=== PATIENT | male | born 1950 | race Caucasian/White ===

== ENCOUNTER → 2017-12-26 | Outpatient (CLI) | payer MEDICARE, OTHER ==
[2016-03-12 20:30] VITALS: BP 128/78
[~2017-12-26] MED LIST: ALFU10TA23 PO; ALLO300T PO; ASPI-482 PO; ATOR40TA PO; BUPIVACAINE MPF 0.25% 10 ML VIAL. ONE; CALC-263 PO; CHOL100014 PO; CINN500C2 PO; DOXA1TAB PO; FOLI1TAB16 PO; HYDR-971 PO; MAGN400T3 PO; METO25TA2 PO; MULT-18 PO; NAPR-683 PO; NIAC1000 PO; NIFE60TA PO; OMEG500C PO; SALS500T11 PO; SILD50TA PO; TELM1TAB PO; [UNRECOGNIZED DRUG - CODE] MC; methylPREDNISolone ACETATE 40 MG/ML VIAL. ONE
== END | disposition home or self-care (01) ==
LOC: SURG 11:20
PROVIDERS: ATTEND Anesthesiology Pain Medicine
DX: M79.1 Myalgia (principal); M19.90 Unspecified osteoarthritis, unspecified site; Z88.8 Allergy status to other drugs, medicaments and biological substances; Z79.82 Long term (current) use of aspirin; Z79.899 Other long term (current) drug therapy; Z98.890 Other specified postprocedural states
CPT/HCPCS: 20553; 99204; J1030; J3490

== ENCOUNTER → 2018-01-16 | Outpatient (CLI) | payer MEDICARE, OTHER ==
[2016-03-12 20:30] VITALS: BP 128/78
[~2018-01-16] MED LIST changes: +LIDOCAINE 1% PF 30 ML VIAL. ONE; -methylPREDNISolone ACETATE 40 MG/ML VIAL. ONE; +methylPREDNISolone ACETATE 80 MG/ML VIAL. ONE
== END | disposition home or self-care (01) ==
LOC: SURG 11:43
PROVIDERS: ATTEND Anesthesiology Pain Medicine
DX: M47.814 Spondylosis without myelopathy or radiculopathy, thoracic region (principal); Z72.89 Other problems related to lifestyle; M19.90 Unspecified osteoarthritis, unspecified site; G89.29 Other chronic pain; Z88.8 Allergy status to other drugs, medicaments and biological substances; Z98.890 Other specified postprocedural states
CPT/HCPCS: 64490; 64491; J1040; J2001; J3490; 64492

== ENCOUNTER 2018-05-09 22:34 | Emergency (ER) | payer MEDICARE, OTHER ==
[~2018-05-09] VITALS: Ht 188 cm; Wt 107.0 kg
[~2018-05-09 22:34] MED LIST changes: -BUPIVACAINE MPF 0.25% 10 ML VIAL. ONE; -LIDOCAINE 1% PF 30 ML VIAL. ONE; -methylPREDNISolone ACETATE 80 MG/ML VIAL. ONE
--- NOTE | 2018-05-09 22:37 | ED.ADGEN ---
Past History Past Medical History: Bronchitis, CAD, Cancer, High Cholesterol, Hypertension, Pneumonia Past Surgical History: No Surgical History, Other Alcohol Use: None Drug Use: None Adult General Chief Complaint Chief Complaint ".. I been having fever and chills... Like I got the flu.... achy.. and .. . I did have a melanoma cancer removed from left thigh at [facility] by Dr. Robb... .. but it looks okay... "..".. This seem to come on all sudden .. " HPI HPI Patient is a 68 year old male who presents with above hx and complaints of fever and chills. Pt was not intubated and did not have britton for his Melanoma surgery. No hx of immunosuppression. No recent travel or specific ill contacts. Pt. normally healthy. . Pt. states if feels like the flu, because of the aching and myalgia. Normally healthy. Review of Systems Review of Systems Constitutional: Hx. fever or chills [] Eyes: Denies change in visual acuity, redness, or eye pain [] HENT: Denies nasal congestion or sore throat [] Respiratory: Denies cough or shortness of breath [] Cardiovascular: No additional information not addressed in HPI [] GI: Denies abdominal pain, nausea, vomiting, bloody stools or diarrhea [] : Denies dysuria or hematuria [] Musculoskeletal: complaints of joint pain [] Integument: Denies rash or skin lesions [] Neurologic: Denies headache, focal weakness or sensory changes [] Endocrine: Denies polyuria or polydipsia [] All other systems were reviewed and found to be within normal limits, except as documented in this note. Family History Family History Non-contributory Current Medications Current Medications Current Medications Medications (Trade) Dose Ordered Sig/[place]ell Start Time Stop Time Status Last Admin Dose Admin Acetaminophen (Tylenol) 1,000 mg 1X ONCE 05/09/18 23:30 05/09/18 23:31 DC 05/09/18 23:38 1,000 MG Ketorolac Tromethamine (Toradol) 30 mg STK-MED ONCE 05/10/18 00:51 05/10/18 00:52 DC Lactated Ringer's 1,000 ml @ 1,000 mls/hr Q1H 05/09/18 23:00 05/09/18 23:59 DC 05/09/18 23:38 1,000 MLS/HR Magnesium Hydroxide (Milk Of Magnesia) 2,400 mg 1X ONCE 05/10/18 01:00 05/10/18 01:01 DC 05/10/18 01:02 2,400 MG See Nursing for home meds Allergies Allergies Allergies Coded Allergies Type Severity Reaction Last Updated Verified clopidogrel bisulfate Allergy Severe TONGUE SWELLING, ANAPHYLAXSIS 01/12/14 Yes Physical Exam Physical Exam Constitutional: mild to moderate distress, non-toxic appearance. [] HENT: Normocephalic, atraumatic, bilateral external ears normal, oropharynx moist, no oral exudates, nose normal. [] Eyes: PERRLA, EOMI, conjunctiva normal, no discharge. [Glasses. Neck: Normal range of motion, no tenderness, supple, no stridor. [] Cardiovascular:Tachycardia Heart rate regular rhythm, no murmur []monitor shows a rhythm with left axis deviation. Lungs & Thorax: Bilateral breath sounds few wheezes at apex on auscultation [] Abdomen: Bowel sounds normal, soft, no tenderness, no masses, no pulsatile masses. [] Skin: Warm, dry, no erythema, no rash. [] Back: No tenderness, no CVA tenderness. [] Extremities: No tenderness, no cyanosis, no clubbing, ROM intact, no edema. [] Suture site / surgery site appears stable and not particularly inflamed Neurologic: Alert and oriented X 3, normal motor function, normal sensory function, no focal deficits noted. [] Psychologic: Affect normal, judgement normal, mood normal. [] Current Patient Data Vital Signs Vital Signs Date Time Temp Pulse Resp B/P (MAP) Pulse Ox O2 Delivery O2 Flow Rate FiO2 05/10/18 00:45 100.0 90 20 138/86 (103) 95 Room Air Lab Results Laboratory Tests Test 05/09/18 23:15 05/09/18 23:25 White Blood Count 11.8 x10^3/uL (4.0-11.0) H Red Blood Count 4.94 x10^6/uL (4.30-5.70) Hemoglobin 15.2 g/dL (13.0-17.5) Hematocrit 44.4 % (39.0-53.0) Mean Corpuscular Volume 90 fL (79-100) Mean Corpuscular Hemoglobin 31 pg (25-35) Mean Corpuscular Hemoglobin Concent 34 g/dL (31-37) Red Cell Distribution Width 14.2 % (11.5-14.5) Platelet Count 166 x10^3/uL (140-400) Neutrophils (%) (Auto) 84 % (31-73) H Lymphocytes (%) (Auto) 4 % (24-48) L Monocytes (%) (Auto) 10 % (0-9) H Eosinophils (%) (Auto) 1 % (0-3) Basophils (%) (Auto) 1 % (0-3) Neutrophils # (Auto) 10.0 x10^3uL (1.8-7.7) H Lymphocytes # (Auto) 0.5 x10^3/uL (1.0-4.8) L Monocytes # (Auto) 1.2 x10^3/uL (0.0-1.1) H Eosinophils # (Auto) 0.1 x10^3/uL (0.0-0.7) Basophils # (Auto) 0.1 x10^3/uL (0.0-0.2) Prothrombin Time 10.4 SEC (9.4-11.4) Prothrombin Time INR 1.0 (0.9-1.1) PTT 26 SEC (23-33) D-Dimer (Suri) 0.42 mg/L (0.00-0.50) Sodium Level 138 mmol/L (136-145) Potassium Level 3.5 mmol/L (3.5-5.1) Chloride Level 103 mmol/L (98-107) Carbon Dioxide Level 27 mmol/L (21-32) Anion Gap 8 (6-14) Blood Urea Nitrogen 22 mg/dL (8-26) Creatinine 1.0 mg/dL (0.7-1.3) Estimated GFR (Cockcroft-Gault) 74.5 Glucose Level 97 mg/dL (70-99) Calcium Level 9.2 mg/dL (8.5-10.1) Magnesium Level 1.7 mg/dL (1.8-2.4) L Total Bilirubin 0.6 mg/dL (0.2-1.0) Direct Bilirubin 0.2 mg/dL (0.0-0.2) Aspartate Amino Transferase (AST) 18 U/L (15-37) Alanine Aminotransferase (ALT) 26 U/L (16-63) Alkaline Phosphatase 85 U/L (46-116) Creatine Kinase 96 U/L (39-308) Creatine Kinase MB (Mass) 0.9 ng/mL (0.0-3.6) Creatine Kinase MB Relative Index 0.9 % (0-4) Troponin I Quantitative < 0.017 ng/mL (0-0.055) XQ-Zii-P-Type Natriuretic Peptide 21 pg/mL (0-124) Total Protein 6.7 g/dL (6.4-8.2) Albumin 3.5 g/dL (3.4-5.0) Urine Collection Type Void Urine Color Yellow Urine Clarity Clear Urine pH 7.0 Urine Specific [place] 1.015 Urine Protein Neg (NEG-TRACE) Urine Glucose (UA) Neg mg/dL (NEG) Urine Ketones (Stick) Neg mg/dL (NEG) Urine Blood Neg (NEG) Urine Nitrite Neg (NEG) Urine Bilirubin Neg (NEG) Urine Urobilinogen Dipstick 1 mg/dL (0.2 mg/dL) Urine Leukocyte Esterase Neg (NEG) Urine RBC Occ /HPF (0-2) Urine WBC Occ /HPF (0-4) Urine Squamous Epithelial Cells None /LPF Urine Bacteria 0 /HPF (0-FEW) Urine Mucus Slight /LPF EKG EKG My interpretation of EKG shows a sinus rhythm at 92 bpm. This is left axis deviation. Some nonspecific contour changes. But no findings acute STEMI of contralateral changes[] Radiology/Procedures Radiology/Procedures I interpretation of chest x-ray shows some chronic changes. There is some degenerative changes of spine. There appears to be a area posterior nodule on the lateral view[] Course & Med Decision Making Course & Med Decision Making Pertinent Labs and Imaging studies reviewed. (See chart for details). Push fluids. Take tylenol and ibuprofen for pain. Return if any concerns. Keep follow up at [facility]- [] Final Impression Final Impression 1. Fever[]/Chills 2. Malaise and Myalgia 3. Viral Syndrome 4. Recent Melanoma - Surgery lt thigh. 5. Pulmonary Nodule ? - Pt. follow up primary- review current films with past CXR films Dragon Disclaimer Dragon Disclaimer This electronic medical record was generated, in whole or in part, using a voice recognition dictation system. CHAR SCHUSTER MD May 09, 2018 22:37
[2018-05-09] MEDS ORDERED: IV RINGERS SOLUTION,LACTATED 1,000 ML IV SCH (23:00)
--- NOTE | 2018-05-09 23:12 | EKG ---
[address] [address] Test Date: 2018-05-09 Test Time: 23:07:02 Pat Name: ELIDIA HERNANDEZ Department: Room: Gender: M Power Plant Technician: BUD : 1950 Requested By: CHAR SCHUSTER Order Number: [id number] Reading MD: Wilner Magaña MD Measurements Intervals [place] Rate: 92 P: 28 TN: 164 QRS: -65 QRSD: 102 T: 22 QT: 342 QTc: 428 Interpretive Statements SINUS RHYTHM ABNORMAL LEFT AXIS DEVIATION QRS(T) CONTOUR ABNORMALITY CONSISTENT WITH INFERIOR INFARCT Electronically Signed On 05-11-2018 11:56:07 CDT by Wilner Magaña MD
[2018-05-09] MEDS ORDERED: ACETAMINOPHEN 500 MG TABLET PO ONE (23:30)
[2018-05-09 23:45] LABS: BASO # 0.1 x10^3/uL (0.0-0.2); BASO % 1 % (0-3); EOS # 0.1 x10^3/uL (0.0-0.7); EOS % 1 % (0-3); HEMATOCRIT 44.4 % (39.0-53.0); HEMOGLOBIN 15.2 g/dL (13.0-17.5); LYMPH # 0.5 x10^3/uL (1.0-4.8); LYMPH % 4 % (24-48); MEAN CORPUSCULAR HEMOGLOBIN 31 pg (25-35); MEAN CORPUSCULAR HGB CONC 34 g/dL (31-37); MEAN CORPUSCULAR VOLUME 90 fL (79-100); MONO # 1.2 x10^3/uL (0.0-1.1); MONO % 10 % (0-9); NEUT % 84 % (31-73); PLATELET COUNT 166 x10^3/uL (140-400); RED BLOOD COUNT 4.94 x10^6/uL (4.30-5.70); RED CELL DISTRIBUTION WIDTH 14.2 % (11.5-14.5); WHITE BLOOD COUNT 11.8 x10^3/uL (4.0-11.0)
[2018-05-09 23:57] LABS: BACTERIA,URINE 0 /HPF (0-FEW); BILIRUBIN,URINE NEG (NEG); CLARITY,URINE CLEAR; COLOR,URINE YELLOW; GLUCOSE,URINE NEG (NEG); NITRITE,URINE NEG (NEG); RBC,URINE OCC /HPF (0-2); UROBILINOGEN,URINE 1 mg/dL (0.2 mg/dL); WBC,URINE OCC /HPF (0-4)
[2018-05-10 00:04] LABS: ALBUMIN 3.5 g/dL (3.4-5.0); CALCIUM 9.2 mg/dL (8.5-10.1); DIRECT BILIRUBIN 0.2 mg/dL (0.0-0.2); GFR 74.5; MAGNESIUM 1.7 mg/dL (1.8-2.4); POTASSIUM 3.5 mmol/L (3.5-5.1); TOTAL BILIRUBIN 0.6 mg/dL (0.2-1.0); TOTAL PROTEIN 6.7 g/dL (6.4-8.2)
[2018-05-10] MEDS ORDERED: HYDR-79 PO (00:32)
[2018-05-10 00:45] VITALS: BP 138/86
[2018-05-10] MEDS ORDERED: KETOROLAC 30 MG/ML VIAL. ONE (00:51)
[2018-05-10] MEDS ORDERED: MAGNESIUM HYDROXIDE 2,400 MG/30 ML ORAL.SUSP. PO ONE (01:00)
[2018-05-10] MEDS ORDERED: KETOROLAC 30 MG/ML VIAL. IV ONE (01:30)
--- NOTE | 2018-05-10 06:08 | RAD ---
EXAM: CHEST 2 VIEWS. HISTORY: Fever. COMPARISON: March 12, 2016. FINDINGS: Frontal and lateral views of the chest are obtained. There are no confluent infiltrates. There is no pneumothorax or pleural effusion. The heart is not enlarged. There is a mild midthoracic compression deformity. There are atherosclerotic calcifications of the aorta. IMPRESSION: 1. No confluent infiltrates. Electronically signed by: Huy Albrecht MD (05/10/2018 6:04 AM) [facility]
== END 2018-05-10 01:05 | disposition home or self-care (01) ==
LOC: ER 22:34
DX: B34.9 Viral infection, unspecified (principal); I25.10 Atherosclerotic heart disease of native coronary artery without angina pectoris; E78.00 Pure hypercholesterolemia, unspecified; I10 Essential (primary) hypertension; Z98.890 Other specified postprocedural states; Z88.8 Allergy status to other drugs, medicaments and biological substances
CPT/HCPCS: 36415; 71046; 80048; 80076; 81001; 82553; 83735; 83880; 84443; 84484; 85025; 85379; 85610; 85730; 87040; 93005; 96374; 99285; J1885; J7120

== ENCOUNTER 2020-07-13 18:52 | Emergency (ER) | payer MEDICARE, OTHER ==
[~2020-07-13] VITALS: Ht 188 cm; Wt 100.0 kg
[2020-07-13 18:52] VITALS: BP 152/79
[~2020-07-13 18:52] MED LIST changes: +HYDR-1179 PO; +HYDR-3165 PO; -HYDR-971 PO; -MAGN400T3 PO; +MAGN400T5 PO
--- NOTE | 2020-07-13 18:58 | PHYS DOC ---
Past History Past Medical History: Arthritis, Bronchitis, CAD, Cancer, High Cholesterol, Hypertension, Pneumonia Past Surgical History: No Surgical History, Other Alcohol Use: None Drug Use: None General Adult EDM: Chief Complaint: WRIST PAIN HPI: HPI: ".. I tripped going down a set of stairs....about 5.feet....but I tried to catch my self..and hurt my Lt.wrist..my Rt. wrist a little..and adrianne pulled some muscle s in my chest.. this happened about 3..but the Lidocaine patches are....not getting it covered.." Patient is a 70 year old male who presents with above hx and complaints Lt.wrist pain and bilateral lower rib pain. Pt.Lt hand dominate. Distal neurovascular is equal to right hand. Does have pain with range of motion of left wrist. Patient does have tenderness on lower chest wall on palpation. No other injury reported. Patient states injury occurred approximately 1500 hrs. Patient of immunosuppression. No history of dysrhythmia. No history of recent travel outside the [place] area. No specific ill contacts. Patient follows with Dr. Sinha. Review of Systems: Review of Systems: Constitutional: Denies fever or chills Eyes: Denies change in visual acuity HENT: Denies nasal congestion or sore throat Respiratory: Denies cough or shortness of breath Cardiovascular: Denies chest pain or edema GI: Denies abdominal pain, nausea, vomiting, bloody stools or diarrhea : Denies dysuria Musculoskeletal: Denies back pain or joint pain Integument: Denies rash Neurologic: Denies headache, focal weakness or sensory changes Endocrine: Denies polyuria or polydipsia Lymphatic: Denies swollen glands Psychiatric: Denies depression or anxiety Heart Score: Risk Factors: Risk Factors: DM, Current or recent (<one month) smoker, HTN, HLP, family history of CAD, obesity. Risk Scores: Score 0 - 3: 2.5% MACE over next 6 weeks - Discharge Home Score 4 - 6: 20.3% MACE over next 6 weeks - Admit for Clinical Observation Score 7 - 10: 72.7% MACE over next 6 weeks - Early Invasive Strategies Family History: Family History: Noncontributory to presentation Current Medications: Current Meds: See nursing for home meds Allergies: Allergies: Allergies Coded Allergies Type Severity Reaction Last Updated Verified clopidogrel bisulfate Allergy Severe TONGUE SWELLING, ANAPHYLAXSIS 01/12/14 Yes Physical Exam: PE: Constitutional: Moderate acute distress, non-toxic appearance. [] HENT: Normocephalic, atraumatic, bilateral external ears normal, oropharynx moist, no oral exudates, nose normal. [] Eyes: PERRLA, EOMI, conjunctiva normal, no discharge. [] Neck: Normal range of motion, no tenderness, supple, no stridor. [] Cardiovascular:Heart rate regular rhythm, no murmur [] Lungs & Thorax: Bilateral breath sounds equal at apex on auscultation [] does have bilateral lower chest wall tenderness. No liver tenderness. No spleen tenderness. Abdomen: Bowel sounds normal, soft, no tenderness, no masses, no pulsatile lucretia s. [] Skin: Warm, dry, no erythema, no rash. [] Back: No tenderness, no CVA tenderness. [] Extremities: No tenderness, no cyanosis, no clubbing, ROM intact, no edema. [] Complaints of left wrist pain as per HPI Neurologic: Alert and oriented X 3, normal motor function, normal sensory function, no focal deficits noted. [] Psychologic: Affect anxious, judgement normal, mood normal. [] EKG: EKG: [] Radiology/Procedures: Radiology/Procedures: [place] [address] IMAGING REPORT Signed PATIENT: ELIDIA HERNANDEZ ACCOUNT: [id number] : 1950 LOCATION: ER AGE: 70 SEX: M EXAM STATUS: REG ER ORD. PHYSICIAN: CHAR SCHUSTER MD REASON: FELL DOWN SET OF STAIRS TODAY. LEFT WRIST PAIN PROCEDURE: WRIST 3V LEFT Exam: Left wrist 3 views INDICATION: Fall down stairs today TECHNIQUE: Frontal, lateral and oblique views of the left wrist Comparisons: None FINDINGS: Mild osteopenia. There is a mildly displaced triquetral fracture. Mild surrounding soft tissue swelling. Joint spaces are well-maintained. IMPRESSION: Mildly displaced triquetral fracture. Electronically signed by: Waylon Baca MD (07/13/2020 7:39 PM) [id number] DICTATED AND SIGNED BY: WAYLON BACA MD DATE: 07/13/201938 CC: CHAR SCHUSTER MD; BRIANA SINHA MD ~ [][address] [address] IMAGING REPORT Signed PATIENT: ELIDIA HERNANDEZ ACCOUNT: [id number] : 1950 LOCATION: ER AGE: 70 SEX: M EXAM STATUS: REG ER ORD. PHYSICIAN: CHAR SCHUSTER MD REASON: FELL DOWN SET OF STAIRS TODAY. DIAPHRAGM PAIN PROCEDURE: CHEST PA & LATERAL Exam: Chest 2 views INDICATION: Fall down stairs today TECHNIQUE: Frontal and lateral views of the chest Comparisons: 05/09/2018 FINDINGS: The cardiomediastinal silhouette and pulmonary vessels are within normal limits. The lung and pleural spaces are clear. IMPRESSION: No acute cardiopulmonary process. Electronically signed by: Waylon Baca MD (07/13/2020 7:41 PM) [id number] DICTATED AND SIGNED BY: WAYLON BACA MD DATE: 07/13/201940 CC: CHAR SCHUSTER MD; BRIANA SINHA MD ~ Course & Med Decision Making: Course & Med Decision Making Pertinent Labs and Imaging studies reviewed. (See chart for details) Ice, elevation, wear splints, take Tylenol and ibuprofen for pain. For marked pain may take Vicoprofen. Follow-up orthopedics for left wrist fracture. Keep left wrist elevated above heart the next couple days. Return if any concerns. Distal neurovascular intact after application of splint [] This neurovascular intact after application patient instructed on any vascular changes to loosen splint and reapply applied. Follow-up orthopedics. Return if any concerns. Impression: 1. Left wrist fracture- Triquetral fx 2. Chest wall Contusion Dragon Disclaimer: Diamond Disclaimer: This electronic medical record was generated, in whole or in part, using a voice recognition dictation system. Departure Departure: Disposition: 01 HOME/RESIDENCE PRIOR TO ADM Condition: STABLE Referrals: BRIANA SINHA MD (PCP) Scripts Hydrocodone/Ibuprofen (HYDROCODONE-IBUPROFEN 7.5-200 ) 1 Each Tablet 1 TAB PO PRN Q6HRS PRN for PAIN, #30 TAB 0 Refills Prov: CHAR SCHUSTER MD 07/13/20 Justification of Admission: Justification of Admission: Justification of Admission Dx: N/A Diamond Disclaimer This chart was dictated in whole or in part using Voice Recognition software in a busy, high-work load, and often noisy Emergency Department environment. It may contain unintended and wholly unrecognized errors or omissions. Dragon Disclaimer This chart was dictated in whole or in part using Voice Recognition software in a busy, high-work load, and often noisy Emergency Department environment. It may contain unintended and wholly unrecognized errors or omissions. CHAR SCHUSTER MD Jul 13, 2020 18:58
--- NOTE | 2020-07-13 19:42 | RAD ---
Exam: Left wrist 3 views INDICATION: Fall down stairs today TECHNIQUE: Frontal, lateral and oblique views of the left wrist Comparisons: None FINDINGS: Mild osteopenia. There is a mildly displaced triquetral fracture. Mild surrounding soft tissue swelling. Joint spaces are well-maintained. IMPRESSION: Mildly displaced triquetral fracture. Electronically signed by: Waylon Regalado MD (07/13/2020 7:39 PM) [id number]
--- NOTE | 2020-07-13 19:43 | RAD ---
Exam: Chest 2 views INDICATION: Fall down stairs today TECHNIQUE: Frontal and lateral views of the chest Comparisons: 05/09/2018 FINDINGS: The cardiomediastinal silhouette and pulmonary vessels are within normal limits. The lung and pleural spaces are clear. IMPRESSION: No acute cardiopulmonary process. Electronically signed by: Waylon Regalado MD (07/13/2020 7:41 PM) [id number]
[2020-07-13] MEDS ORDERED: HYDR-1179 PO (19:56)
== END 2020-07-13 20:09 | disposition home or self-care (01) ==
LOC: ER 18:52
DX: S62.112A Displaced fracture of triquetrum [cuneiform] bone, left wrist, initial encounter for closed fracture (principal); S20.212A Contusion of left front wall of thorax, initial encounter; S20.211A Contusion of right front wall of thorax, initial encounter; M19.90 Unspecified osteoarthritis, unspecified site; I25.10 Atherosclerotic heart disease of native coronary artery without angina pectoris; E78.00 Pure hypercholesterolemia, unspecified; I10 Essential (primary) hypertension; Z88.8 Allergy status to other drugs, medicaments and biological substances; W10.8XXA Fall (on) (from) other stairs and steps, initial encounter; Y93.89 Activity, other specified; Y92.89 Other specified places as the place of occurrence of the external cause; Y99.8 Other external cause status
CPT/HCPCS: 29125; 71046; 73110; 99284-25